=== PATIENT | female | born 1950 | race Two or more races ===

== ENCOUNTER 2017-06-18 10:37 | Emergency (ER) | payer OTHER, MEDICARE ==
[~2017-06-18] VITALS: Ht 170.2 cm; Wt 77.1 kg
[2017-06-18 10:42] VITALS: Ht 170.2 cm; Wt 77.1 kg
[2017-06-18 11:32] LABS: BASOPHIL % 0.9 % (0-2); PLATELET COUNT 301 x10^3mcL (130-400); RED CELL DISTRIBUTION WIDTH 12.9 % (11.5-14.5)
[2017-06-18] MEDS ORDERED: LOVASTATIN20 MG PO (11:41)
[2017-06-18 11:44] LABS: CALCIUM 9.2 mg/dL (8.5-10.1); CARBON DIOXIDE 28.3 mmol/L (21-32); CHLORIDE SERUM 102 mmol/L (98-107); CREATININE SERUM 0.6 mg/dL (0.6-1.0); GFR1 > 60 mL/min; GLUCOSE SERUM 110 mg/dL (74-106); POTASSIUM SERUM 3.8 mmol/L (3.5-5.1); SODIUM SERUM 139 mmol/L (136-145)
[2017-06-18 11:49] LABS: ALBUMIN 3.9 g/dL (3.4-5.0); ALKALINE PHOSPHATASE 63 U/L (46-116); ALT/SGPT 26 U/L (14-59); AST/SGOT 20 U/L (15-37); BILIRUBIN TOTAL 0.34 mg/dL (0.20-1.00); TOTAL PROTEIN, SERUM 8.1 g/dL (6.4-8.2)
[2017-06-18 13:30] VITALS: BP 140/84
== END 2017-06-18 13:30 | disposition home or self-care (01) ==
LOC: ED 10:37
PROVIDERS: Emergency Medicine
DX: R42 Dizziness and giddiness (principal)
CPT/HCPCS: 83880; J7030; J8597; Q0092; Q0162